=== PATIENT | female | born 2000 | race African-American/Black ===

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

== ENCOUNTER 2019-03-25 08:36 | Emergency (ER) | payer OTHER ==
[~2019-03-25] VITALS: Ht 160 cm; Wt 85.4 kg
[~2019-03-25 08:36] MED LIST changes: +IBUP200T45 PO; +TYLETAB14 PO
[2019-03-25] MEDS ORDERED: CYCLOBENZAPRINE 5MG TABLET PO ONE (09:15)
[2019-03-25] MEDS ORDERED: IBUPROFEN 800 MG TAB PO ONE (09:15)
[2019-03-25 10:37] VITALS: BP 128/71
[2019-03-25] MEDS ORDERED: LIDO5DIS41 TD (10:44)
[2019-03-25] MEDS ORDERED: IBUP80TA PO (10:44)
[2019-03-25] MEDS ORDERED: CYCL5TAB PO (10:44)
[2019-03-25] MEDS ORDERED: LIDOCAINE 5% (LIDODERM) PATCH TD ONE (10:45)
--- NOTE | 2019-03-25 10:49 | REP ---
LUMBOSACRAL SPINE, FIVE VIEWS: Five views of the lumbosacral spine performed. There is no compression fracture or malalignment. There is no spondylolysis or spondylolisthesis. Disc spaces are well preserved. Posterior elements are intact. IMPRESSION: Negative lumbosacral spine series. Electronically Signed by Mark Virgen MD 03/25/2019 05:53 P
[2019-03-25] MEDS ORDERED: **NOTE PATIENT COMMENT** MISC XX SCH (21:00)
== END 2019-03-25 10:51 | disposition home or self-care (01) ==
LOC: M ED 08:36
DX: M62.830 Muscle spasm of back (principal); G89.29 Other chronic pain; M54.5 Low back pain; Z79.899 Other long term (current) drug therapy

== ENCOUNTER 2019-04-08 12:34 | Inpatient (IN) | payer OTHER ==
[~2019-04-08] VITALS: Ht 160 cm; Wt 83.4 kg
[~2019-04-08 12:34] MED LIST changes: +CYCL5TAB PO; +IBUP80TA PO; +LIDO5DIS41 TD
[2019-04-08 13:12] LABS: HEMATOCRIT 39.3 % (36.0-47.0); HEMOGLOBIN 12.3 g/dl (12.0-15.5); MEAN CORPUSCULAR HEMOGLOBIN 24.7 pg (27.0-33.0); MEAN CORPUSCULAR HGB CONC 31.3 g/dl (32.0-36.5); MEAN CORPUSCULAR VOLUME 78.9 fl (80.0-96.0); PLATELET COUNT, AUTOMATED 286 10^3/uL (150-450); RED BLOOD COUNT 4.98 10^6/uL (4.00-5.40)
[2019-04-08 13:40] LABS: AMPHETAMINES LEVEL URINE NEGATIVE (NEGATIVE); BARBITURATES URINE NEGATIVE (NEGATIVE); BENZODIAZEPINES URINE NEGATIVE (NEGATIVE); CANNABINOIDS URINE NEGATIVE (NEGATIVE); COCAINE METABOLITE URINE NEGATIVE (NEGATIVE); METHADONE URINE NEGATIVE (NEGATIVE); OPIATES URINE NEGATIVE (NEGATIVE); PHENCYCLIDINE URINE NEGATIVE (NEGATIVE)
[2019-04-08 13:45] LABS: HCG, SERUM QUALITATIVE NEGATIVE (NEGATIVE)
[2019-04-08 13:51] LABS: ACETAMINOPHEN LEVEL < 2.0 UG/ML (10.0-30.0); ALBUMIN 3.8 GM/DL (3.2-5.2); ALT/SGPT 12 U/L (12-78); BILIRUBIN,DIRECT < 0.1 MG/DL (0.0-0.2); BILIRUBIN,TOTAL 0.3 MG/DL (0.2-1.0); BLOOD UREA NITROGEN 14 MG/DL (7-18); CALCIUM LEVEL 8.9 MG/DL (8.5-10.1); CARBON DIOXIDE LEVEL 27 MEQ/L (21-32); CHLORIDE LEVEL 108 MEQ/L (98-107); ETHYL ALCOHOL (ETHANOL) < 0.003 % (0.000-0.010); GLUCOSE, FASTING 92 MG/DL (70-100); POTASSIUM SERUM 3.7 MEQ/L (3.5-5.1); SALICYLATE LEVEL < 1.7 MG/DL (5.0-30.0); SODIUM LEVEL 141 MEQ/L (136-145); THYROID STIMULATING HORMONE 0.949 uIU/ML (0.463-3.98); TOTAL PROTEIN 7.7 GM/DL (6.4-8.2)
[2019-04-08] MEDS ORDERED: MOM 30ML SUSPENSION UDC PO PRN (17:45)
[2019-04-08] MEDS ORDERED: ACETAMINOPHEN TAB 650MG DOSE (2X325MG) PO PRN (17:45)
[2019-04-08] MEDS ORDERED: MAALOX 30 ML SUSP *UDC PO PRN (17:45)
[2019-04-08] MEDS ORDERED: LIDO5DIS41 TD (20:19)
[2019-04-08] MEDS ORDERED: CYCL5TAB PO (20:19)
[2019-04-08] MEDS ORDERED: ACET-683 PO (20:19)
[2019-04-08 22:30] VITALS: BP 131/78
[2019-04-09 06:09] VITALS: BP 118/56
--- NOTE | 2019-04-09 09:52 | MHHPEPDOC ---
[facility] History & Physical History and Physical DATE OF ADMISSION: Apr 08, 2019 at 17:40 Renetta Davis New Patient Renetta Davis Select Gender MRN: N/A Date of : MM/DD/YYYY Date of Service: 04/09/2019 Chief Complaint "I was only suicidal for a little." History of Present Illness The patient, a 19-year-old woman with a history of mild depression after a miscarriage last September, reports that she had become increasingly stressed, fatigued and had difficulty sleeping after she had found out that her who is currently deployed had been cheating on her. She reports that this made her much more depressed and that in the setting of isolation she had become much more concerned about her safety reporting suicidal thoughts with the thought to use her 's shotgun to kill herself with. She had been brought to [facility] after she presented to [facility] for the suicidal ideation earlier. She had been significantly scared of these thoughts. When the patient was met with she reported that she had felt depressed and r eported suicidal ideation prior to coming in, but none when she had come in. She reports that her mood and affect have been low secondary to the multiple stresses, but that prior she has had no psychiatric history and had been in good emotional health prior. Review Of Systems Depression: As above. Anxiety: The patient denies any excessive worry associated with physical symptoms. They deny any experience of discreet panic in the past. Teresa: The patient denies any episodes of euphoria/dysphoria associated with decreased need for sleep, hedonism, talkatively or impulsivity lasting longer than 5 days. Psychotic: The patient denies any experiences of auditory or visual hallucinations. They deny any episodes of paranoia or delusional thinking in the past Trauma: The patient denies any traumatic events associated with nightmares or intrusive thoughts. Borderline: The patient screens negative for borderline personality at this junction. Past Psychiatric History The patient reports no history of psychiatric admissions, medication trials or current follow up. Allergies Please see below. Family Psychiatric History The patient denies/is unaware any history of mental health history including addictions and suicide. Social History The patient is currently to her first , woman with no children. She has been to her for the last year. She currently subsists on income. She is a high school graduate with no major legal problems other than small tickets for driving without a license. She grew up in a family with the parents with a good relationship with her mother who currently lives in [place] and has a estranged relationship with her father. Reports no history of abuse. Reports doing well in school without any major problems. 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 Substance Abuse History The patient denies any excessive alcohol use, tobacco or illicit drug use, denies history of substance use treatment. Medical History Patient has no significant past medical history. Mental Status Examination General: Well dressed with good hygiene Speech: Spontaneous and fluid Thought processes: Linear and logical MSK: Smooth and coordinated gait, no signs of tremors or involuntary orofacial movements Thought content: Future orientated Abstract reasoning, and computation: Intact Description of associations: Intact Description of abnormal or psychotic thoughts: Denies any suicidal or homicidal ideation. Denies any auditory or visual hallucinations. Does not appear to be responding to internal stimuli. Does not appear to be endorsing any bizarre or paranoid ideation. Judgment: fair Insight: fair Orientation: Alert and orientated 3 Cognition: Grossly normal Recent and remote memory: Intact Attention span and concentration: Intact Fund of knowledge: Adequate Mood: "okay" Affect: Mildly anxious Diagnoses Unspecified depressive disorder. Rule out adjustment versus MDD if patient gets minimizing. Assessment and Plan Unspecified depressive disorder: Start sertraline 25 mg daily. Discussed risks, benefits, and potential side effects with patient, as well as, alternatives and which medications not to mix with. Disposition Patient will need admission likely lasting around 2 midnights in order to stabilize her depression. Plan for safety and have weapons removed from her home from higher chain of command as this poses significant threat to her safety. Problem List 1. Risk for suicide. 2. Depression. 3. Ineffective coping. Initial Treatment Plan 1. Patient was admitted on a 9.39 legal status. 2. Complete history was obtained. 3. With patients permission, family will be contacted and database will be expanded. 4. Patients medication regimen will be reviewed and changed accordingly. 5. Patient will be provided with protected environment. 6. Patient will be treated with individual, group, and milieu therapies. 7. Patient will receive supportive psych-education. 8. Discharge planning will commence immediately. 9. Outpatient follow-up treatment will be strongly recommended. 10. The initial treatment plan will focus initially on: Estimated Length Of Stay 3 days. Time Spent 45 minutes. Vital Signs Vital Signs Date Time Temp Pulse Resp B/P (MAP) Pulse Ox O2 Delivery O2 Flow Rate FiO2 04/09/19 06:09 99.0 77 16 118/56 (76) Room Air 04/08/19 21:52 100 Laboratory Data 24H Labs Laboratory Tests 2 04/08/19 12:59: Nucleated Red Blood Cells % (auto) 0.0, Anion Gap 6L, Calcium Level 8.9, Total Bilirubin 0.3, Direct Bilirubin < 0.1, Aspartate Amino Transf (AST/SGOT) 11, Alanine Aminotransferase (ALT/SGPT) 12, Alkaline Phosphatase 83, Total Protein 7.7, Albumin 3.8, Albumin/Globulin Ratio 0.97L, Thyroid Stimulating Hormone (TSH) 0.949, Human Chorionic Gonadotropin, Qual NEGATIVE, Salicylates Level < 1.7L, Urine Opiates Screen NEGATIVE, Urine Methadone Screen NEGATIVE, Acetaminophen Level < 2.0L, Urine Barbiturates Screen NEGATIVE, Urine Phencyclidine Screen NEGATIVE, Urine Amphetamines Screen NEGATIVE, Urine Benzodiazepines Screen NEGATIVE, Urine Cocaine Metabolite Screen NEGATIVE, Urine Cannabinoids Screen NEGATIVE, Ethyl Alcohol Level < 0.003 CBC/BMP Laboratory Tests 04/08/19 12:59 Medications Scheduled Lidocaine (Lidoderm) 5% Adh..patch, 1 PATCH TD DAILY, (Reported) Apply to area of pain, Remove patch after 12 hours Scheduled PRN Acetaminophen (Acetaminophen) 500 Mg Tablet, 1,000 MG PO Q8H PRN for PAIN / FEVER, (Reported) Cyclobenzaprine HCl (Cyclobenzaprine HCl) 5 Mg Tablet, 5 MG PO Q8H PRN for MUSCLE SPASMS, (Reported) Allergies Coded Allergies: No Known Allergies (Verified Allergy, Unknown, 11/10/18) HUSEYIN SIMEON DO Apr 09, 2019 09:52
[2019-04-09] MEDS ORDERED: CYCLOBENZAPRINE 5MG TABLET PO PRN (10:45)
--- NOTE | 2019-04-09 11:51 | HPE ---
DATE OF ADMISSION: 04/08/2019 CHIEF COMPLAINT: Back pain and depression. HISTORY OF PRESENT ILLNESS: This is a 19-year-old female, past medical history of spontaneous abortions s/p dilation and currettage x 2, chronic low back pain imaged on 03/25/2019 with negative findings, active duty admitted for depression. She otherwise denies any changes in weight, fever, chills, insomnia, hypersomnia. She has had a decrease in appetite. No nausea or vomiting, abdominal pain, dysuria, urgency, frequency, fever or chills, flank pain. Denies chest pain, pressure or tightness, shortness of breath, paroxysmal nocturnal dyspnea (PND) or orthopnea. Denies any rashes, joint pains or muscle aches, rhinorrhea, upper respiratory infection, sore throat, ear pain, headaches or changes vision, diplopia. Patient denies any polyuria or polydipsia. PAST MEDICAL HISTORY: Dilation and curettage, spontaneous times two. PAST SURGICAL HISTORY: Dilation and curettage times two ALLERGIES: NO KNOWN DRUG ALLERGIES. HOME MEDICATIONS: None. HOSPITALIST MEDICATIONS: - trazodone - acetaminophen - Milk of Magnesia - Mylanta - Flexeril as needed 5 mg every 6 hours SOCIAL HISTORY: Denies any cigarette use. Drinks Smirnoff once per month. Active duty . FAMILY HISTORY: Mother and father in their 40s alive and well. No active medical problems. REVIEW OF SYSTEMS: Per history of present illness (HPI). 10-point system otherwise negative. PHYSICAL EXAMINATION: Temperature 99, pulse 77, respiratory rate 16, blood pressure 118/56, 100% on room air. Generally, patient is awake, alert, oriented times three, answering questions appropriately. Patient is maintaining eye contact. No respiratory distress. No cyanosis. No pallor, icterus, jaundice. Moist mucous membranes. No cervical lymphadenopathy or thyromegaly. No tonsillar exudates. Tympanic membranes are clear. Lungs are clear to auscultation. No wheezing, rales or rhonchi. Heart: S1, S2. Sinus rhythm. Abdomen is obese, soft, nontender, nondistended. Positive bowel sounds. Extremities: No cyanosis, clubbing or any pitting edema. Musculoskeletal: Patient does not have any costovertebral angle (CVA) tenderness bilaterally. No point tenderness on vertebral exam from the cervical, thoracic and lumbar spine. LABORATORY DATA: 04/08/2019 CBC, metabolic panel, liver function tests, TSH, hCG have been reviewed. Urine toxicology screen is negative. Ethyl alcohol is negative. IMAGING STUDIES: 03/25/2019 lumbar spine negative lumbar spine series. ASSESSMENT AND PLAN: This is a 19-year-old admitted for depression, history of spontaneous abortions times two with two dilation and curettages complains of chronic back pain. Patient has no dysuria, urgency or frequency, fever or chills, flank pain. Urinalysis (UA) will be checked. X-ray of the lumbar spine is unremarkable. Urine hCG is negative. Deep venous thrombosis (DVT) prophylaxis encourage ambulation. MTDD
[2019-04-09 16:39] VITALS: BP 129/81
[2019-04-09] MEDS: traZODone 50 MG TAB PO PRN (21:10)
[2019-04-10 06:47] VITALS: BP 123/78
[2019-04-10] MEDS: SERTRALINE HCL 25 MG TABLET PO SCH (08:51)
[2019-04-10 16:25] VITALS: BP 110/59
--- NOTE | 2019-04-10 18:31 | MHIPN ---
DATE: 04/10/2019 CHIEF COMPLAINT: Says feels better. SUBJECTIVE: Seen for followup in the presence of staff. She was admitted April 08. Currently the admission summary is not available. She says she feels better since coming in, in that she is somewhat less anxious, possibly less depressed. Several stressors, including those outlined in the emergency room (ER) note, including concerns about her , his fidelity. Says her mother knows that she is here. Has spoken with her. Says they are close. MENTAL STATUS EXAMINATION: Neat, cooperative, though a bit guarded. No agitation. No psychomotor retardation. She is coherent. Affect restricted but reactive. Denies any suicidal thoughts or intents. No homicidal ideas or intents. No evidence of any psychosis. Judgment and insight are compromised. ASSESSMENT: 1. Other specified depressive disorder. 2. Rule out major depressive disorder. PLAN: Continue current care, including the sertraline, and continue encouraging patient's participation in activities in the unit. Further recommendations will be made depending in the clinical picture. VITAL SIGNS: Blood pressure 110/59, pulse 70, temperature 98.4.
[2019-04-10] MEDS: traZODone 50 MG TAB PO PRN (20:54)
[2019-04-11 06:33] VITALS: BP 106/58
[2019-04-11] MEDS: SERTRALINE HCL 25 MG TABLET PO SCH (08:21)
[2019-04-11] MEDS ORDERED: DOCUSATE SODIUM 100 MG CAP PO PRN (11:45)
--- NOTE | 2019-04-11 15:37 | MHIPN ---
DATE: 04/11/2019 VITAL SIGNS: Blood pressure 106/58, pulse 99, temperature 99.1. CHIEF COMPLAINT: Says feels okay. SUBJECTIVE: She is seen for followup in the presence of staff. Says feels okay emotionally, had difficulties going to sleep last night, despite the trazodone. MENTAL STATUS EXAMINATION: Neat, cooperative. We had just woken her up, she was napping. Affect is restricted but reactive, is a bit tired. Denies any thoughts of harming herself or anyone else. No evidence of any psychosis. Cognition is grossly intact. Judgment and insight possibly improved. ASSESSMENT: 1. Other specified depressive disorder. 2. Rule out major depressive disorder. PLAN: Continue current care and participation in the activities on the unit. She sees her treatment team and the psychiatrist tomorrow and is expected to be discharged shortly.
[2019-04-11 16:34] VITALS: BP 115/65
[2019-04-11] MEDS: traZODone 50 MG TAB PO PRN (20:54)
[2019-04-12 06:37] VITALS: BP 121/65
[2019-04-12] MEDS ORDERED: SERT25TA21 PO (08:26)
[2019-04-12] MEDS: SERTRALINE HCL 25 MG TABLET PO SCH (09:39)
--- NOTE | 2019-04-12 09:51 | MHDSPDOC ---
[facility] Discharge Summary Discharge Summary DATE OF ADMISSION: Apr 08, 2019 at 17:40 DATE OF DISCHARGE: Apr 12, 2019 at 09:47 Renetta Yaya Davis Discharge Renetta Davis Select Gender MRN: N/A Date of : MM/DD/YYYY Date of Service: 04/12/2019 Diagnoses Unspecified depressive disorder. Rule out adjustment versus MDD if patient is minimizing. History of Present Illness The patient, a 19-year-old woman with a history of mild depression after a miscarriage last September, reports that she had become increasingly stressed, fatigued and had difficulty sleeping after she had found out that her who is currently deployed had been cheating on her. She reports that this made her much more depressed and that in the setting of isolation she had become much more concerned about her safety reporting suicidal thoughts with the thought to use her 's shotgun to kill herself with. She had been brought to [facility] after she presented to [facility] for the suicidal ideation earlier. She had been significantly scared of these thoughts. When the patient was met with she reported that she had felt depressed and reported suicidal ideation prior to coming in, but none when she had come in. She reports that her mood and affect have been low secondary to the multiple stresses, but that prior she has had no psychiatric history and had been in good emotional health prior. Consultants Involved Hospitalist/PCP screening Treatment and Progress On The Unit The patient was admitted to the unit and subsequently started on sertraline. She had denied suicidal ideation prior to coming to the unit after observation in the ER. After treatment on the inpatient unit, she had improvement, reported positive results from her medications and was able to demonstrate insight into the situation that brought her in. She had been denying suicidal ideation thr ough the majority of her stay and when Friday came, the patient reported that she wished to go. She did not meet involuntary criteria in my opinion as she was not admitting to any suicidal ideation. Her mental status did not demonstrate any signs or symptoms of severe impairment by her depression. She demonstrates good insight, attended to her needs in groups regularly. She demonstrated no homicidal ideation or anger towards others especially those that have wronged her demonstrating good frontal control. She declined further voluntary admission and thus was discharged in [place]. Discharge Assessment 19-year-old woman who presents with likely adjustment disorder after being put into multiple stressful situations. It's unlikely that she has gotten into major depression, however, if she does not participate in treatment and improve, she could later end up with it converting into major depression. She did well on the unit and is discharged in [place]. Mental Status Examination General: Well dressed with good hygiene Speech: Spontaneous and fluid Thought processes: Linear and logical MSK: Smooth and coordinated gait, no signs of tremors or involuntary orofacial movements Thought content: Future orientated Abstract reasoning, and computation: Intact Description of associations: Intact Description of abnormal or psychotic thoughts: Denies any suicidal or homicidal ideation. Denies any auditory or visual hallucinations. Does not appear to be responding to internal stimuli. Does not appear to be endorsing any bizarre or paranoid ideation. Judgment: fair Insight: fair Orientation: Alert and orientated 3 Cognition: Grossly normal Recent and remote memory: Intact Attention span and concentration: Intact Fund of knowledge: Adequate Mood: "okay" Affect: Euthymic with a full range Follow Up The social work team worked during the predischarge meeting in order to evaluate for further issues of lethality address them fully before discharge. They worked on safety planning with the patient's family members in order to ensure that the patient will have a safe and effective discharge. Time Spent The amount of time spent in the coordination of care for this patient was approximately 30 minutes. Vital Signs/I&Os Vital Signs Date Time Temp Pulse Resp B/P (MAP) Pulse Ox O2 Delivery O2 Flow Rate FiO2 04/12/19 06:37 97.6 63 14 121/65 (83) 04/11/19 06:33 Room Air 04/08/19 21:52 100 Medications Scheduled Lidocaine (Lidoderm) 5% Adh..patch, 1 PATCH TD DAILY, (Reported) Apply to area of pain, Remove patch after 12 hours Sertraline HCl (Sertraline HCl) 25 Mg Tablet, 25 MG PO DAILY for mood for 7 Days, #7 Scheduled PRN Acetaminophen (Acetaminophen) 500 Mg Tablet, 1,000 MG PO Q8H PRN for PAIN / FEVER, (Reported) Cyclobenzaprine HCl (Cyclobenzaprine HCl) 5 Mg Tablet, 5 MG PO Q8H PRN for MUSCLE SPASMS, (Reported) Allergies Coded Allergies: No Known Allergies (Verified Allergy, Unknown, 11/10/18) HUSEYIN SIMEON DO Apr 12, 2019 09:51
== END 2019-04-12 09:47 | disposition home or self-care (01) | DRG 881 ==
LOC: M ED 12:34 → M ED INP 17:40 → M PSY 22:12
PROVIDERS: ADMIT Psychiatry & Neurology Addiction Medicine; ATTEND Psychiatry & Neurology Addiction Medicine
DX: F32.9 Major depressive disorder, single episode, unspecified (principal); R45.851 Suicidal ideations; Z79.899 Other long term (current) drug therapy

== ENCOUNTER 2019-08-27 07:55 | Emergency (ER) | payer OTHER ==
[~2019-08-27] VITALS: Ht 160 cm; Wt 85.9 kg
[~2019-08-27 07:55] MED LIST changes: +ACET-683 PO; +SERT25TA21 PO
[2019-08-27] MEDS ORDERED: PREN29TA4 PO (08:02)
[2019-08-27 08:49] LABS: BASO % 0.7 % (0.0-1.0); EOS # 0.1 10^3/uL (0.0-0.5); HEMATOCRIT 38.5 % (36.0-47.0); HEMOGLOBIN 12.1 g/dl (12.0-15.5); LYMPH # 1.8 10^3/uL (1.5-5.0); LYMPH % 29.9 % (24.0-44.0); MEAN CORPUSCULAR HEMOGLOBIN 25.7 pg (27.0-33.0); MEAN CORPUSCULAR HGB CONC 31.4 g/dl (32.0-36.5); MEAN CORPUSCULAR VOLUME 81.9 fl (80.0-96.0); MONO # 0.4 10^3/uL (0.0-0.8); MONO % 7.5 % (0.0-5.0); NEUTROPHILS # 3.6 10^3/uL (1.5-8.5); NEUTROPHILS % 60.6 % (36.0-66.0); PLATELET COUNT, AUTOMATED 299 10^3/uL (150-450); WHITE BLOOD COUNT 5.9 10^3/uL (4.0-10.0)
[2019-08-27 09:36] LABS: BLOOD UREA NITROGEN 11 MG/DL (7-18); CALCIUM LEVEL 8.5 MG/DL (8.5-10.1); CARBON DIOXIDE LEVEL 26 MEQ/L (21-32); CHLORIDE LEVEL 107 MEQ/L (98-107); CREATININE FOR GFR 0.79 MG/DL (0.55-1.30); GLUCOSE, FASTING 84 MG/DL (70-100); HCG, SERUM QUANTITATIVE 7140 MIU/ML; POTASSIUM SERUM 3.8 MEQ/L (3.5-5.1); SODIUM LEVEL 139 MEQ/L (136-145)
--- NOTE | 2019-08-27 10:19 | REP ---
PELVIC ULTRASOUND: Real-time sonographic evaluation of the pelvis is performed. Transabdominal and endovaginal technique is utilized. Gestational sac is seen in the uterus, with a mean sac diameter of 8 mm corresponding to an estimated gestational age of 5 weeks 4 days. A yolk sac is seen within the gestational sac. No pole is seen. Findings are consistent with early intrauterine . There is no subchorionic hemorrhage. Right ovary measures 3.7 x 1.7 x 2.6 cm. Left ovary measures 5.0 x 3.0 x 3.9 cm. Complex corpus luteum of the left ovary measures 3.7 x 2.7 x 2.4 cm. No torsion is seen with duplex Doppler evaluation. Electronically Signed by Mark Virgen MD 08/31/2019 03:20 P
[2019-08-27 10:46] VITALS: BP 131/63
[2019-08-27 11:07] LABS: APPEARANCE, URINE CLOUDY (CLEAR); BACTERIA, URINE AUTO 3+ (NEGATIVE); BILIRUBIN, URINE AUTO NEGATIVE (NEGATIVE); BLOOD, URINE BLOOD NEGATIVE (NEGATIVE); COLOR, URINE AMBER (YELLOW); GLUCOSE, URINE (UA) AUTO NEGATIVE (NEGATIVE); KETONE, URINE AUTO NEGATIVE (NEGATIVE); LEUKOCYTE ESTERASE, URINE AUTO NEGATIVE (NEGATIVE); MUCUS, URINE MODERATE (NEGATIVE); NITRITE, URINE AUTO NEGATIVE (NEGATIVE); PROTEIN, URINE AUTO NEGATIVE (NEGATIVE); RBC, URINE AUTO 3 /HPF (0-3); SPECIFIC GRAVITY URINE AUTO 1.029 (1.002-1.035); SQUAMOUS EPITHELIAL CELL UR AU 15 /HPF (0-6); UROBILINOGEN, URINE AUTO 0.2 mg/dL (0.0-2.0); WBC, URINE AUTO 3 /HPF (0-3)
== END 2019-08-27 11:10 | disposition home or self-care (01) ==
LOC: M ED 07:55
DX: O99.89 Other specified diseases and conditions complicating pregnancy, childbirth and the puerperium (principal); R10.9 Unspecified abdominal pain; Z3A.01 Less than 8 weeks gestation of pregnancy; Z79.899 Other long term (current) drug therapy

== ENCOUNTER 2019-11-01 05:49 | Emergency (ER) | payer OTHER ==
[~2019-11-01] VITALS: Ht 160 cm; Wt 87.3 kg
[2019-11-01] MEDS ORDERED: ACETAMINOPHEN 500 MG TAB PO ONE (07:00)
[2019-11-01] MEDS ORDERED: NS 1,000 ML IV ONE (07:00)
[2019-11-01] MEDS ORDERED: METOCLOPRAMIDE INJ 10MG/2ML VIAL (J2765 PER 1) IV ONE (07:00)
[2019-11-01] MEDS ORDERED: diphenhydrAMINE 50MG/ML VIAL (J1200) IV ONE (07:00)
[2019-11-01 07:26] LABS: BASO % 0.4 % (0.0-1.0); EOS # 0.1 10^3/uL (0.0-0.5); EOS % 1.9 % (0.0-3.0); HEMATOCRIT 36.5 % (36.0-47.0); HEMOGLOBIN 12.5 g/dl (12.0-15.5); LYMPH # 1.6 10^3/uL (1.5-5.0); LYMPH % 22.9 % (24.0-44.0); MEAN CORPUSCULAR HEMOGLOBIN 27.4 pg (27.0-33.0); MEAN CORPUSCULAR HGB CONC 34.2 g/dl (32.0-36.5); MEAN CORPUSCULAR VOLUME 79.9 fl (80.0-96.0); MONO # 0.6 10^3/uL (0.0-0.8); MONO % 8.1 % (0.0-5.0); NEUTROPHILS # 4.6 10^3/uL (1.5-8.5); NEUTROPHILS % 66.3 % (36.0-66.0); PLATELET COUNT, AUTOMATED 213 10^3/uL (150-450); RED BLOOD COUNT 4.57 10^6/uL (4.00-5.40); WHITE BLOOD COUNT 6.9 10^3/uL (4.0-10.0)
[2019-11-01 08:28] VITALS: BP 112/61
== END 2019-11-01 08:36 | disposition home or self-care (01) ==
LOC: M ED 05:49
DX: G44.209 Tension-type headache, unspecified, not intractable (principal); S00.33XA Contusion of nose, initial encounter; W50.1XXA Accidental kick by another person, initial encounter; Y92.018 Other place in single-family (private) house as the place of occurrence of the external cause; Z3A.15 15 weeks gestation of pregnancy
CPT/HCPCS: 84702; 85025; 96361; 96374; 96375; 99284; J1200; J2765

== ENCOUNTER 2019-12-05 16:37 | Emergency (ER) | payer OTHER ==
[~2019-12-05] VITALS: Ht 160 cm; Wt 88.9 kg
[2019-12-05 17:12] LABS: HEMATOCRIT 35.8 % (36.0-47.0); HEMOGLOBIN 12.3 g/dl (12.0-15.5); MEAN CORPUSCULAR HEMOGLOBIN 28.5 pg (27.0-33.0); MEAN CORPUSCULAR HGB CONC 34.4 g/dl (32.0-36.5); MEAN CORPUSCULAR VOLUME 82.9 fl (80.0-96.0); PLATELET COUNT, AUTOMATED 227 10^3/uL (150-450); RED BLOOD COUNT 4.32 10^6/uL (4.00-5.40); WHITE BLOOD COUNT 7.7 10^3/uL (4.0-10.0)
[2019-12-05 17:37] LABS: BLOOD UREA NITROGEN 11 MG/DL (7-18); CALCIUM LEVEL 8.3 MG/DL (8.5-10.1); CARBON DIOXIDE LEVEL 25 MEQ/L (21-32); CHLORIDE LEVEL 106 MEQ/L (98-107); CREATININE FOR GFR 0.59 MG/DL (0.55-1.30); GLUCOSE, FASTING 105 MG/DL (70-100); POTASSIUM SERUM 3.7 MEQ/L (3.5-5.1); SODIUM LEVEL 139 MEQ/L (136-145)
--- NOTE | 2019-12-05 19:47 | REPVR ---
PROCEDURE INFORMATION: Exam: US , Limited Exam date and time: 12/05/2019 7:30 PM Age: 19 years old Clinical indication: complicated by abdominal or pelvic pain; Lower; Second trimester; Gestational age or lmp: 07/19/19; ; Additional info: Cramping/no movement TECHNIQUE: Imaging protocol: Real-time ultrasound of the maternal uterus with image documentation. Exam focused on the clinical indication. COMPARISON: CR Spine. Lumbosacral, complete 03/25/2019 9:20 AM FINDINGS: Gestation: Single intrauterine gestation demonstrated. Gestational age is 19 weeks 6 days based on LMP of 07/19/2019. ZARIA 04/24/2020. Heart rate: heart rate 144 bpm. Placenta: Anterior placenta without evidence of placenta previa. Amniotic fluid: Amniotic fluid volume index is 11.7, normal for gestational age. Other findings: Anatomic survey was not performed requested at this time. IMPRESSION: Unremarkable assessment of amniotic fluid volume . Single living fetus at gestational age 19 weeks 6 days based on LMP. Electronically signed by: James Patel On 12/05/2019 19:47:19 PM
[2019-12-05 20:02] LABS: HEMOGLOBIN A1c 5.3 %
[2019-12-05 20:10] VITALS: BP 113/63
--- NOTE | 2019-12-05 22:49 | IPNPDOC ---
Text Note Date of Service The patient was seen on 12/05/19. NOTE Spoke with provider caring for the patient. No pelvic exam, no vaginal wet prep performed. Recommended a pelvic exam with a wet prep sent prior to discharging the patient. This is standard for evaluation of a patient presenting with cramping as symptoms. DO Tracey VS,Fishbone, I+O VS, Fishbone, I+O Laboratory Tests 12/05/19 17:00 Vital Signs Date Time Temp Pulse Resp B/P (MAP) Pulse Ox O2 Delivery O2 Flow Rate FiO2 12/05/19 20:10 97.8 72 16 113/63 (80) 100 Room Air PENNY CHOW DO Dec 05, 2019 22:49
== END 2019-12-05 20:43 | disposition home or self-care (01) ==
LOC: M ED 16:37
DX: O99.89 Other specified diseases and conditions complicating pregnancy, childbirth and the puerperium (principal); R10.2 Pelvic and perineal pain; Z3A.19 19 weeks gestation of pregnancy

== ENCOUNTER 2020-01-21 18:06 | Emergency (ER) | payer OTHER | END 2020-01-21 21:45 | disposition home or self-care (01) | LOC: M ED 18:06 | DX: Z11.59 Encounter for screening for other viral diseases (principal); O99.89 Other specified diseases and conditions complicating pregnancy, childbirth and the puerperium; Z20.828 Contact with and (suspected) exposure to other viral communicable diseases; Z3A.26 26 weeks gestation of pregnancy | CPT/HCPCS: 99283; U0002 ==

== ENCOUNTER 2020-03-10 08:52 | Emergency (ER) | payer OTHER ==
[~2020-03-10] VITALS: Ht 160 cm; Wt 97.4 kg
--- NOTE | 2020-03-10 09:41 | REPVR ---
PROCEDURE INFORMATION: Exam: XR Chest, 1 View Exam date and time: 03/10/2020 9:22 AM Age: 20 years old Clinical indication: Shortness of breath; Additional info: SOB please shield TECHNIQUE: Imaging protocol: XR of the chest Views: 1 view. COMPARISON: No relevant prior studies available. FINDINGS: Lungs: Unremarkable. No consolidation. Pleural space: Unremarkable. No pleural effusion. No pneumothorax. Heart/Mediastinum: Unremarkable. No cardiomegaly. Bones/joints: Unremarkable. IMPRESSION: No acute abnormalities are identified. Electronically signed by: Lencho Palma On 03/10/2020 09:40:47 AM
[2020-03-10 09:52] LABS: BASO % 0.5 % (0.0-1.0); EOS # 0.1 10^3/uL (0.0-0.5); EOS % 1.3 % (0.0-3.0); HEMATOCRIT 35.7 % (36.0-47.0); LYMPH # 1.2 10^3/uL (1.5-5.0); LYMPH % 19.8 % (24.0-44.0); MEAN CORPUSCULAR HEMOGLOBIN 28.5 pg (27.0-33.0); MEAN CORPUSCULAR HGB CONC 33.6 g/dl (32.0-36.5); MEAN CORPUSCULAR VOLUME 84.8 fl (80.0-96.0); MONO # 0.6 10^3/uL (0.0-0.8); MONO % 10.6 % (0.0-5.0); NEUTROPHILS % 66.6 % (36.0-66.0); PLATELET COUNT, AUTOMATED 197 10^3/uL (150-450); RED BLOOD COUNT 4.21 10^6/uL (4.00-5.40)
[2020-03-10 10:16] LABS: ALBUMIN 2.8 GM/DL (3.2-5.2); ALT/SGPT 11 U/L (12-78); BILIRUBIN,TOTAL 0.2 MG/DL (0.2-1.0); BLOOD UREA NITROGEN 6 MG/DL (7-18); CALCIUM LEVEL 8.9 MG/DL (8.5-10.1); CARBON DIOXIDE LEVEL 25 MEQ/L (21-32); CHLORIDE LEVEL 108 MEQ/L (98-107); CREATININE FOR GFR 0.59 MG/DL (0.55-1.30); GLOMERULAR FILTRATION RATE > 60.0 (>60); GLUCOSE, FASTING 114 MG/DL (70-100); POTASSIUM SERUM 3.7 MEQ/L (3.5-5.1); SODIUM LEVEL 139 MEQ/L (136-145); TOTAL PROTEIN 6.3 GM/DL (6.4-8.2)
--- NOTE | 2020-03-10 10:57 | REPVR ---
PROCEDURE INFORMATION: Exam: US Duplex Lower Extremity Veins, Bilateral Exam date and time: 03/10/2020 10:53 AM Age: 20 years old Clinical indication: Other: SOB TECHNIQUE: Imaging protocol: Real-time duplex ultrasound of the extremities with 2-D chavarria scale, color Doppler flow and spectral waveform analysis with image documentation. Complete exam focused on the bilateral lower extremity veins. COMPARISON: No relevant prior studies available. FINDINGS: Right deep veins: Unremarkable. The common femoral, femoral (duplicated distally), proximal profunda femoral and popliteal veins are patent without thrombus. Normal Doppler waveforms. Normal compressibility and/or augmentation response. Right superficial veins: Saphenofemoral junction is patent without thrombus. Left deep veins: Unremarkable. The common femoral, femoral, proximal profunda femoral and popliteal veins are patent without thrombus. Normal Doppler waveforms. Normal compressibility and/or augmentation response. Left superficial veins: Saphenofemoral junction is patent without thrombus. Soft tissues: Unremarkable. IMPRESSION: No deep venous thrombus demonstrated in either lower extremity. Electronically signed by: Lei Wyatt On 03/10/2020 10:57:07 AM
[2020-03-10 11:12] VITALS: O2SAT 98
[2020-03-10] MEDS ORDERED: NS 1,000 ML IV ONE (11:15)
[2020-03-10 12:51] VITALS: BP 122/59
--- NOTE | 2020-03-11 11:57 | ECGEPIP ---
[facility] - ED Test Date: 2020-03-10 Pat Name: JACOB DYER Department: Room: - Gender: Female Building Custodial Supervisor: : 2000 Requested By: Shikha Hernandez Order Number: [id number] Reading MD: Clarence Armstrong Measurements Intervals [place] Rate: 106 P: 35 [place]: 147 QRS: 38 QRSD: 80 T: 14 QT: 327 QTc: 434 Interpretive Statements SINUS TACHYCARDIA NONSPECIFIC T-WAVE ABNORMALITY NO PRIORS FOR COMPARISON Electronically Signed on 03-11-2020 11:57:07 EDT by Clarence Armstrong
== END 2020-03-10 12:53 | disposition home or self-care (01) ==
LOC: M ED 08:52
DX: O26.813 Pregnancy related exhaustion and fatigue, third trimester (principal); Z3A.33 33 weeks gestation of pregnancy; O99.413 Diseases of the circulatory system complicating pregnancy, third trimester; R00.0 Tachycardia, unspecified

== ENCOUNTER 2020-04-17 14:01 | Outpatient (CLI) | payer OTHER ==
[~2020-04-17] VITALS: Ht 160 cm; Wt 96.6 kg
[2020-04-17 14:22] VITALS: BP 121/70
--- NOTE | 2020-04-17 16:36 | IPNPDOC ---
Obstetrical Progress Note Date of Service Apr 17, 2020 Subjective 20yo G1 at 39wks presents with c/o LOF since Friday. She has not required a pad. Reports active movement. No vaginal bleeding or re ctx. O: vss AF Cat 1 tracing, no ctx. Gen: well appearing abd:soft, gravid, nttp SSE: neg Nitrazine, ferning, robby and valsva A/P: 20yo not ruptured Reassuring status -home with Labor precautions and FKCs -f/u at next OB appt Objective Vital Signs Date Time Temp Pulse Resp B/P (MAP) Pulse Ox O2 Delivery O2 Flow Rate FiO2 04/17/20 14:22 97.9 96 18 121/70 (87) Tocometer Contractions: No Assessment and Plan Age: 20 : 2 Status: Reassuring Group B Streptococcus: Negative YUAN MASON MD. Apr 17, 2020 16:36
== END 2020-04-17 16:30 | disposition home or self-care (01) ==
LOC: M LDO 14:01
PROVIDERS: ATTEND Obstetrics & Gynecology
DX: O47.1 False labor at or after 37 completed weeks of gestation (principal); Z3A.39 39 weeks gestation of pregnancy
CPT/HCPCS: 59025; G0378; G0463

== ENCOUNTER 2020-04-22 09:20 | Outpatient (CLI) | payer OTHER ==
[~2020-04-22] VITALS: Ht 157.5 cm; Wt 97.2 kg
[2020-04-22 09:38] VITALS: BP 115/77
--- NOTE | 2020-04-22 10:55 | IPNPDOC ---
Text Note Date of Service The patient was seen on 04/22/20. REVIEWED CHART NO RISK FACTORS BMI 33.12 MILD CONTRACTIONS ON MONITOR CATEGORY 1 STRIP PELVIC EXAM POSTERIOR 1-2 CM 50% EFFACED SOFT -3 STATION NO BLOOD NO DISCHARGE. REVIEWED WITH PRECAUTIONS. PATIENT BOOKED IOL 05/01/2020 AT 41 WEEKS . PATIENT DISCHARGED UNDELIVERED NOTE 04/22/20 PATIENT SEEN TRIAGE COMPLAINTS CONTRACTIONS FOR 1 HOUR . NO LOSS OF FLUID NO VAGINAL BLEEDING FKC ACTIVE AT 39 WEEKS VS,Fishbone, I+O VS, Fishbone, I+O Vital Signs Date Time Temp Pulse Resp B/P (MAP) Pulse Ox O2 Delivery O2 Flow Rate FiO2 04/22/20 09:38 98.1 107 20 115/77 (90) Nikhil Huynh MD Apr 22, 2020 10:51
== END 2020-04-22 10:52 | disposition home or self-care (01) ==
LOC: M LDO 09:20
PROVIDERS: ATTEND Obstetrics & Gynecology
DX: O26.893 Other specified pregnancy related conditions, third trimester (principal); Z3A.39 39 weeks gestation of pregnancy
CPT/HCPCS: 59025; G0378; G0463

== ENCOUNTER 2020-04-22 19:39 | Inpatient (IN) | payer OTHER ==
[~2020-04-22] VITALS: Ht 160 cm; Wt 96.9 kg
[2020-04-22] VITALS (19 sets, daily range): BP systolic 98–144; BP diastolic 57–83
[2020-04-22] MEDS ORDERED: LACTATED RINGER'S 1000 ML IV ONE (20:30)
--- NOTE | 2020-04-22 21:00 | HPEPDOC ---
Obstetrical History & Physical General Date of Admission Apr 22, 2020 at 20:07 Primary Care Physician: Nikhil Huynh MD History of Present Illness 04/22/2020 2034 PM CONTRACTIONS Q3 MINUTES MODERATE NO VAGINAL BLEEDING NO DISCHARGE GBS NEGATIVE Chief Complaint: Contractions, term, Active Labor Age: 20 : 2 Term: 0 Abortions: 1 Care Care: Good Care Dating Final EDC: Apr 24, 2020 Final EDC by: LMP LMP: Jul 19, 2019 EGA at Admission: 39 Past Medical History Past Obstetrical History : Past Obstetrical History: Primgravida RN REHABILITATION History: No pertinent history Past Medical History Surgical History: Denies/None Family History Significant Family History: No pertinent family hx Social History Marital Status: Psychosocial History: No pertinent psych hx * Smoker: non-smoker Alcohol: Denies Drugs: denies Abuse Violence Screening Have you been hit/kicked/slapp: No Have you been sexually assault: No Imunizations Tdap status: current Influenza Status: current Allergies Coded Allergies: No Known Allergies (Verified Allergy, Unknown, 11/10/18) Medications Scheduled Prenat 115/Iron Fum/Folic/Dss ( 19 Tablet) 1 Each Tablet, 1 TAB PO DAILY Physical Examination Physical Examination GENERAL: Alert and oriented times three. BREAST: . ABDOMEN: Gravid and non-tender to touch. FETUS: Is vertex VTX by sterile vaginal examination SVE fetus is vertex VTX by Lonny. HEART RATE: Regular rate and rhythm. LUNGS: Clear to auscultation CTA NO RHALS NO RONCHI EXTREMITIES: No edema. No clonus. Vital Signs/I&O Vital Signs Date Time Temp Pulse Resp B/P (MAP) Pulse Ox O2 Delivery O2 Flow Rate FiO2 04/22/20 19:53 97.6 91 18 128/83 (98) Laboratory Data 24H LABS Laboratory Tests 2 04/22/20 20:10: Serology Scanned Report Hepatitis B Testing Pertinent Laboratoy Data Blood Type: A- HIV: Negative Hepatitis B: Negative Rapid Plasma Reagin: Nonreactive Rubella: Immune Varicella: Immune Chlamydia/Gonorrhea: Negative Group B Streptococcus: Negative Anatomy Ultrasound Placenta Location: Anterior Normal Anatomy: Yes Steroid Therapy Steroid Therapy: No Vaginal Examination Dilation: 4 cm Effacement: 100% Station: -3 Cervical Consistency: Soft Cervical Position: Anterior Presentation: Cephalic presentation Assessment Variability: Moderate Accelerations: Positive Decelerations: None Tocometer Contractions: Yes Frequency: regular, every 1-5 min. Duration: less than 60 seconds Strength: palpated as moderate Assessment/Plan Assessment 19 -year-old G 2 39.2 WEEKS Presents to Labor and Delivery ACTIVE LABOR Plan Admit and orient. Negative Stripper and consent. Diet: CLEAR Group B Streptococcus GBS negative Labs and intravenous IV per unit protocol. Counseled on Pitocin and AROM Lactated Ringers LR Bolus 1000 ML PRE EPIDURAL then at 125 mL/hr. Anticipate [normal spontaneous delivery C-S as appropriate. Labor and Delivery Counseling REVIEWED CONSENT FOR VAGINAL DELIVERY WHICH IS DELIVERY THROUGH VAGINA. YOU MAY REQUIRE AUGMENTATION WITH PITOCIN YOU MAY REQUIRE EPISIOTOMY TO ALLOW BABY TO DELIVER VAGINALLY WHEN PUSHING BECOMES INEFFECTIVE OR IF DELIVERY NEEDS TO BE EXPEDITED FOR REASONS. CS MAY BE REQUIRED ON URGENT BASIS DUE TO ENVIRONMENT OR MATERNAL REASONS WHEN DELIVERY NEEDS TO BE EXPEDITED. RISKS TO INTERVENTION IS VAGINAL LACERATIONS REPAIR OF EPISIOTOMY CERVICAL REPAIR BOWEL OR BLADDER INJURY RISK OF PP HEMORRHAGE REQUIRE BLOOD TRANSFUSION RISK HYSTERECTOMY RISK ADMISSION NICU, RISK TACHYSYSTOLE RISK OF SCRATCHES , HEMATOMAS , INTRACRANIAL BLEED. PRESENTLY CATEGORY 1 STRIP SAFE TO PROCEED . Nikhil Huynh MD Apr 22, 2020 20:43
[2020-04-22 21:15] LABS: HEMATOCRIT 37.4 % (36.0-47.0); HEMOGLOBIN 12.1 g/dl (12.0-15.5); MEAN CORPUSCULAR HEMOGLOBIN 27.1 pg (27.0-33.0); MEAN CORPUSCULAR HGB CONC 32.4 g/dl (32.0-36.5); MEAN CORPUSCULAR VOLUME 83.9 fl (80.0-96.0); PLATELET COUNT, AUTOMATED 185 10^3/uL (150-450); RED BLOOD COUNT 4.46 10^6/uL (4.00-5.40); WHITE BLOOD COUNT 8.1 10^3/uL (4.0-10.0)
[2020-04-22] MEDS ORDERED: FENTANYL 2MCG/ML ROPIVACAINE 0.2% IN 0.9% NACL 100ML IVBAG As Ordered ONE (21:54)
[2020-04-22] MEDS ORDERED: ONDANSETRON 4MG/2ML VIAL IV PRN (22:22)
[2020-04-22] MEDS ORDERED: EPIDURAL/PCA KEYS XX PRN (22:22)
[2020-04-22] MEDS ORDERED: ePHEDrine SULFATE 25 MG/5 ML(5MG/ML) SYRINGE IV PRN (22:22)
[2020-04-22] MEDS ORDERED: NALOXONE INJ 0.4MG/1ML VIAL (J2310 PER 1MG) IV PRN (22:22)
[2020-04-22] MEDS ORDERED: REFRIGERATOR IV KEYS XX PRN (22:22)
[2020-04-22] MEDS ORDERED: EPIDURAL COMMENT XX SCH (22:22)
[2020-04-22] MEDS ORDERED: diphenhydrAMINE 50MG/ML VIAL (J1200) IV PRN (22:22)
[2020-04-22] MEDS ORDERED: LACTATED RINGER'S 1000 ML IV PRN (22:22)
[2020-04-22] MEDS: LR 1,000 ML IV SCH (22:30)
[2020-04-23] VITALS (29 sets, daily range): BP systolic 105–142; BP diastolic 55–89
[2020-04-23] MEDS: FENTANYL/ROPIVACAINE/NACL BAG 100 ML EPIDURAL SCH ×2 (00:12→07:14)
--- NOTE | 2020-04-23 01:11 | IPNPDOC ---
Text Note Date of Service The patient was seen on 04/23/20. NOTE 04/23/20 [address] AROM CLEAR FLUID 9 CM OT -3 100% EFFACED CATEGORY 1 STRIP SAFE TO PROCEED. VS,Fishbone, I+O VS, Fishbone, I+O Laboratory Tests 04/22/20 21:05 Vital Signs Date Time Temp Pulse Resp B/P (MAP) Pulse Ox O2 Delivery O2 Flow Rate FiO2 04/22/20 23:49 110 130/61 (84) 04/22/20 19:53 97.6 18 Nikhil Huynh MD Apr 23, 2020 01:10
[2020-04-23] MEDS ORDERED: OXYTOCIN 30 UNITS IN 0.9% NaCl 500ML IV BAG (J2590) As Ordered ONE (01:52)
[2020-04-23] MEDS: LR 1,000 ML IV SCH (03:15)
[2020-04-23 08:28] LABS: CORD GAS ABE A -6.1; CORD GAS HCO3 A 22.1 MEQ/L; CORD GAS PCO2 A 54.5 mmHg; CORD GAS PH A 7.226 UNITS; CORD GAS SBC A 17.9 MEQ/L; CORD GAS TCO2 A 23.8 MEQ/L
[2020-04-23 08:31] LABS: CORD GAS ABE V -2.7; CORD GAS HCO3 V 20.7 MEQ/L; CORD GAS O2 SAT V 77.2 %; CORD GAS PCO2 V 32.9 mmHg; CORD GAS PH V 7.417 UNITS; CORD GAS PO2 V 31.2 mmHg; CORD GAS SBC V 21.7 MEQ/L; CORD GAS TCO2 V 21.7 MEQ/L
[2020-04-23] MEDS ORDERED: LR 1,000 ML IV SCH (08:54)
[2020-04-23] MEDS ORDERED: OXYTOCIN DRIP 30 UNITS in IV 1 EA IV ONE (09:00)
[2020-04-23] MEDS ORDERED: DIBUCAINE 1% OINTMENT 30GM TOP PRN (09:00)
[2020-04-23] MEDS ORDERED: MOM 30ML SUSPENSION UDC PO PRN (09:00)
[2020-04-23] MEDS ORDERED: OXYTOCIN INJ 10 UNITS/ML VIAL (J2590) IV ONE (09:00)
[2020-04-23] MEDS ORDERED: DOCUSATE SODIUM 100 MG CAP PO PRN (09:00)
[2020-04-23] MEDS: PRENATAL VITAMINS CHEWABLE TABLET PO SCH (09:00)
[2020-04-23] MEDS ORDERED: METHYLERGONOVINE MALEATE 0.2 MG TAB PO PRN (09:00)
[2020-04-23] MEDS ORDERED: ACETAMINOPHEN TAB 650MG DOSE (2X325MG) PO PRN (09:00)
[2020-04-23] MEDS ORDERED: MEASLES,MUMPS,RUBELLA VACCINE INJ (MMR-II) (90707) SC SCH (09:00)
[2020-04-23] MEDS ORDERED: RHOGAM 300 MCG (1500 IU) INJ (J2790) IM SCH (09:00)
[2020-04-23] MEDS ORDERED: ACETAMINOPHEN 500 MG TAB PO PRN (09:00)
[2020-04-23] MEDS ORDERED: IBUPROFEN 600MG TAB PO PRN (09:00)
[2020-04-23] MEDS ORDERED: ANUSOL HC CREAM 30GM TOP PRN (09:00)
[2020-04-23] MEDS ORDERED: OXYTOCIN DRIP 30 UNITS in IV 1 EA IV SCH (09:00)
--- NOTE | 2020-04-23 09:42 | DNPDOC ---
[facility] Delivery Note Delivery Note DATE OF DELIVERY: 04/23/2020 PREDELIVERY DIAGNOSIS: active labor at 40 weeks' gestation and labor. POST DELIVERY DIAGNOSIS: Delivered. PROCEDURE: vacuum assisted to stabilize caput then removed and over mid line episiotomy DOOR CAPTAIN: DR.E.S.COHEN LAI. ANESTHESIA: Y.DATE OF DELIVERY: 04/23/2020 PREDELIVERY DIAGNOSIS: 40 weeks, 0 days gestation. POSTDELIVERY DIAGNOSIS: spontaneous PROCEDURE: Spontaneous vaginal delivery PROVIDER: marina Huynh Md [employer] COORDINATOR: ANESTHESIA: Epidural. ESTIMATED BLOOD LOSS: 100 mL. FINDINGS: Male] weighing 8 pounds 2 ounces or 3690grams, scores 8 and 9 DELIVERY SUMMARY: After a short second stage, with 2 pulls vacuum to stabilize caput very asynclitic then removed vacuum pressure was 50 mm mg the patient spontaneously delivered a 8 pound 2 ounce male infant, weighing 3690 grams, under epidural anesthesia] . The delivered right occiput anterior, and there was one nuchal time one, loose, which was reduced. The shoulders delivered with ease, followed by the corpus and terminal meconium. The cried spontaneously and was handed to the mother. scores were 8 and 9 The cord was doubly clamped and cut by the father of the baby. The placenta was delivered spontaneously and appeared to be intact . The patient received 5 units Pitocin immediately after delivery of the placenta. Patient had A MIDLINE EPISIOTOMY . REPAIRED 2-0 VICRYL Sponge, needle, and instrument counts were correct. ESTIMATED BLOOD LOSS: 100 ML FINDINGS: 8 pound 2 ounce , Score 8/9 , nuchal cord times 1 LOOSE DELIVERY SUMMARY: Patient is a 20year-old 2 now para 1 who was admitted to labor and delivery ACTIVE LABOR Nikhil Huynh MD Apr 23, 2020 09:40
[2020-04-23] MEDS ORDERED: SLF 3 ML SYR IV PRN (12:15)
[2020-04-23] MEDS: IBUPROFEN 800 MG TAB PO PRN (12:34)
[2020-04-23] MEDS ORDERED: SLF 3 ML SYR IV SCH (14:00)
[2020-04-24 06:10] VITALS: BP 125/78
--- NOTE | 2020-04-24 07:17 | IPNPDOC ---
Progress Note Date of Service: Apr 24, 2020 Day#: 1 Progress Note SUBJECT: 20yo s/p VAVD doing well day # 1. She has been ambu lating, voiding spontaneously without issue and tolerating regular diet. Breast feeding without issue. Reports lochia is decreasing. Reports pain controlled. OBJECTIVE: VITAL SIGNS: Within normal limits, afebrile. Alert and oriented times three. RESP: no exaggerated respiratory effort appreciated, no cough CARDS: well-perfused Abdomen: Fundus firm at U-2. Soft, NTTP. : Small lochia, small edema, laceration well-approximated ASSESSMENT: 20yo s/p VAVD doing well day # 1. Normotensive, afebrile, hemodynamically stable with no evidence of infection. PLAN: 1. Discharge to home tomorrow 2. Tylenol and Motrin for pain PRN. 3. Encourage breast feeding and ambulation. 4. Encourage regular diet and PO hydration as tolerated 5. Monitor lochia and vitals q4h and PRN VS, I&O, 24H, [facility] Vital Signs/I&O Vital Signs Date Time Temp Pulse Resp B/P (MAP) Pulse Ox O2 Delivery O2 Flow Rate FiO2 04/24/20 06:10 98.0 76 20 125/78 (94) 97 Room Air I&O- Last 24 Hours up to 6 AM 04/24/20 06:00 Output Total 3000 ml Balance -3000 ml Laboratory Data 24H LABS Laboratory Tests 2 04/23/20 08:18: Cord Arterial Blood pH 7.226, Cord Arterial Blood PCO2 54.5, Cord Arterial Blood PO2 14.0, Cord Arterial Blood HCO3 22.1, Cord Arterial Blood Total CO2 23.8, Cord Arterial Blood Base Excess -6.1, Cord Arterial Base Excess (Standard 17.9, Cord Arterial Bld Oxygen Saturation 19.0, Cord Venous Blood pH 7.417, Cord Venous Blood PCO2 32.9, Cord Venous Blood PO2 31.2, Cord Venous Blood HCO3 20.7, Cord Venous Blood Total CO2 21.7, Cord Venous Base Excess (Actual) -2.7, Cord Venous Base Excess (Standard) 21.7, Cord Venous Blood Oxygen Saturation 77.2 KATLYN PECK DO Apr 24, 2020 07:17
[2020-04-24 07:45] LABS: HEMATOCRIT 35.3 % (36.0-47.0); HEMOGLOBIN 11.3 g/dl (12.0-15.5); MEAN CORPUSCULAR HEMOGLOBIN 26.8 pg (27.0-33.0); MEAN CORPUSCULAR VOLUME 83.8 fl (80.0-96.0); PLATELET COUNT, AUTOMATED 159 10^3/uL (150-450); RED BLOOD COUNT 4.21 10^6/uL (4.00-5.40); WHITE BLOOD COUNT 7.4 10^3/uL (4.0-10.0)
[2020-04-24] MEDS: PRENATAL VITAMINS CHEWABLE TABLET PO SCH (08:12)
[2020-04-24] MEDS: IBUPROFEN 800 MG TAB PO PRN (08:12)
[2020-04-24 17:42] VITALS: BP 115/61
--- NOTE | 2020-04-25 04:16 | IPNPDOC ---
Progress Note Date of Service: Apr 25, 2020 Day#: 2 Progress Note SUBJECT: 20yo s/p VAVD doing well day # 2. She has been ambulating, voiding spontaneously without issue and tolerating regular diet. She has stopped and is currently formula feeding. She desires to attempt pumping at home but declines pump while inpatient. Reports lochia is decreasing. Reports pain controlled. OBJECTIVE: VITAL SIGNS: Within normal limits, afebrile. Alert and oriented times three. RESP: no exaggerated respiratory effort appreciated, no cough CARDS: well-perfused Abdomen: Fundus firm at U-2. Soft, NTTP. : deferred per patient request ASSESSMENT: 20yo s/p VAVD doing well day # 2. Normotensive, afebrile, hemodynamically stable with no evidence of infection. PLAN: 1. Discharge to home today. 2. Tylenol and Motrin for pain. 3. Encourage ambulation as tolerated. 4. Encourage regular diet and PO hydration as tolerated 5. Routine PP visit in 6 weeks in clinic. 6. Discussed return precautions at length. VS, I&O, 24H, Fishbone Vital Signs/I&O Vital Signs Date Time Temp Pulse Resp B/P (MAP) Pulse Ox O2 Delivery O2 Flow Rate FiO2 04/24/20 17:42 98.3 85 16 115/61 (79) 04/24/20 06:10 97 Room Air Laboratory Data 24H LABS Laboratory Tests 2 04/24/20 06:31: Nucleated Red Blood Cells % (auto) 0.0 CBC/BMP Laboratory Tests 04/24/20 06:31 KATLYN PECK DO Apr 25, 2020 04:16
[2020-04-25 05:33] VITALS: BP 134/73
[2020-04-25] MEDS: IBUPROFEN 800 MG TAB PO PRN (07:35)
[2020-04-25] MEDS: PRENATAL VITAMINS CHEWABLE TABLET PO SCH (07:36)
== END 2020-04-25 12:10 | disposition home or self-care (01) | DRG 807 ==
LOC: M LDO 19:39 → M LDI 20:07 → M OBS 04-23 12:20
PROVIDERS: ADMIT Obstetrics & Gynecology; ATTEND Obstetrics & Gynecology
PROC: 10D07Z6 Extraction of Products of Conception, Vacuum, Via Natural or Artificial Opening (ICD-10-PCS; principal; 2020-04-23)
PROC: 0W8NXZZ Division of Female Perineum, External Approach (ICD-10-PCS; 2020-04-23)
PROC: 10907ZC Drainage of Amniotic Fluid, Therapeutic from Products of Conception, Via Natural or Artificial Opening (ICD-10-PCS; 2020-04-23)
DX: O77.0 Labor and delivery complicated by meconium in amniotic fluid (principal); Z37.0 Single live birth; Z3A.40 40 weeks gestation of pregnancy

== ENCOUNTER → 2020-12-16 | Outpatient (CLI) | payer OTHER | LOC: M LABSMTC 11:29 | PROVIDERS: ATTEND Anesthesiology | DX: Z20.828 Contact with and (suspected) exposure to other viral communicable diseases (principal); Z11.59 Encounter for screening for other viral diseases ==

== ENCOUNTER 2020-12-21 06:06 | Day surgery (SDC) | payer OTHER ==
[~2020-12-21] VITALS: Ht 160 cm; Wt 95.6 kg
[~2020-12-21 06:06] MED LIST changes: +LR 1,000 ML IV ONE
[2020-12-21 06:53] LABS: HEMATOCRIT 39.6 % (36.0-47.0); MEAN CORPUSCULAR HEMOGLOBIN 26.9 pg (27.0-33.0); MEAN CORPUSCULAR HGB CONC 32.8 g/dl (32.0-36.5); MEAN CORPUSCULAR VOLUME 81.8 fl (80.0-96.0); PLATELET COUNT, AUTOMATED 240 10^3/uL (150-450); RED BLOOD COUNT 4.84 10^6/uL (4.00-5.40); WHITE BLOOD COUNT 5.4 10^3/uL (4.0-10.0)
[2020-12-21] MEDS ORDERED: BUPIVACAINE LIPOSOME/PF 1.3% 20ML VIAL (13.3MG/ML)(EXPAREL)(C9290 PER1MG) As Ordered ONE (07:10)
[2020-12-21] MEDS ORDERED: ceFAZolin 1GM VIAL (J0690 PER 500MG) As Ordered ONE (07:11)
[2020-12-21] MEDS ORDERED: dexameTHASONE 4 MG/ML 1ML VIAL (J1100 PER 1MG) As Ordered ONE (07:24)
[2020-12-21] MEDS ORDERED: ROCURONIUM BROMIDE 50 MG/5 ML VIAL As Ordered ONE ×2 (07:24→08:57)
[2020-12-21] MEDS ORDERED: propofoL 200 MG/20 ML VIAL As Ordered ONE (07:24)
[2020-12-21] MEDS ORDERED: LIDOCAINE 2% 100MG/5ML SDV (FOR ANES.) As Ordered ONE (07:24)
[2020-12-21] MEDS ORDERED: fentaNYL 250 MCG/5 ML INJECTION (J3010) As Ordered ONE (07:25)
[2020-12-21] MEDS ORDERED: MIDAZOLAM INJ 2MG/2ML VIAL (J2250 PER 1MG) As Ordered ONE (07:25)
[2020-12-21 07:26] LABS: BLOOD UREA NITROGEN 14 MG/DL (7-18); CALCIUM LEVEL 8.2 MG/DL (8.5-10.1); CARBON DIOXIDE LEVEL 27 MEQ/L (21-32); CHLORIDE LEVEL 108 MEQ/L (98-107); GLOMERULAR FILTRATION RATE > 60.0 (>60); GLUCOSE, FASTING 97 MG/DL (70-100); POTASSIUM SERUM 3.6 MEQ/L (3.5-5.1); SODIUM LEVEL 140 MEQ/L (136-145)
[2020-12-21] MEDS ORDERED: ceFAZolin SOD 1 GM in D5W MINI-BAG PLUS 50 ML IV ONE (07:30)
[2020-12-21] MEDS ORDERED: HEPARIN SOD (PORCINE) 5000UNITS/ML 1ML VIAL/SYRINGE As Ordered ONE (07:34)
[2020-12-21] MEDS ORDERED: LACRILUBE (AKWA TEARS) OPHTH OINT 3.5 GM As Ordered ONE (07:59)
[2020-12-21] MEDS ORDERED: ESMOLOL INJ 100MG/10ML VIAL As Ordered ONE (08:18)
[2020-12-21] MEDS ORDERED: ACETAMINOPHEN 1000MG 100ML IV BTL (OFIRMEV) (J0131 PER 10MG) As Ordered ONE (08:53)
[2020-12-21] MEDS ORDERED: SUGAMMADEX SODIUM 500 MG/5 ML VIAL (BRIDION) As Ordered ONE (08:53)
[2020-12-21] MEDS ORDERED: HYDROmorphone HCL 2 MG/ML 1ML VIAL (J1170) As Ordered ONE (08:53)
[2020-12-21] MEDS ORDERED: ONDANSETRON 4MG/2ML VIAL As Ordered ONE (08:57)
[2020-12-21] MEDS ORDERED: SEVOFLURANE INHAL SOLN 250 ML BTL As Ordered ONE (09:16)
[2020-12-21] MEDS ORDERED: ONDANSETRON 4MG/2ML VIAL IV PRN ×3 (09:30→12:30)
[2020-12-21] MEDS ORDERED: LR 1,000 ML IV SCH ×2 (09:30→12:30)
[2020-12-21] MEDS ORDERED: fentaNYL 100 MCG/2 ML INJECTION (J3010) IV PRN ×2 (09:30→12:30)
[2020-12-21] MEDS ORDERED: HYDROMORPHONE HCL 0.5 MG/ 0.5 ML SYRINGE (J1170 PER 1) IV PRN ×2 (09:30→12:30)
[2020-12-21] MEDS ORDERED: oxyCODONE 5MG TAB PO PRN ×2 (09:30→12:30)
--- NOTE | 2020-12-21 12:08 | POST-OPPD ---
Postoperative Procedure Note Date Of Procedure: Dec 21, 2020 PREPROCEDURE DIAGNOSES: Bilateral breast hypertrophy. POSTPROCEDURE DIAGNOSES: same. PROCEDURE PERFORMED: Bilateral breast reduction. SURGEON: Dr Green ANESTHESIA: General. ESTIMATED BLOOD LOSS: Approximately 150 mL. COMPLICATIONS: none. FINDINGS: Large breasts SPECIMENS REMOVED: Right breast 768 gm, Left breast 760 gm CONDITION: FERNY Nicole DO Dec 21, 2020 12:08
--- NOTE | 2020-12-21 12:11 | ROOPDOC ---
[facility] Report Of Operation Report of Operation DATE OF PROCEDURE: 12/21/20 PREPROCEDURE DIAGNOSES: Bilateral breast hypertrophy. POSTPROCEDURE DIAGNOSES: same. PROCEDURE PERFORMED: Bilateral breast reduction. SURGEON: Dr Brenner ANESTHESIA: General. ESTIMATED BLOOD LOSS: Approximately 150 mL. COMPLICATIONS: none. FINDINGS: Large breasts SPECIMENS REMOVED: Right breast 768 gm, Left breast 760 gm CONDITION: stable DESCRIPTION OF PROCEDURE: This is a 20-year-old female who upper back and neck pain worsened by large breasts. Patient is an active duty soldier. She is scheduled for bilateral breast reduction. Risks, benefits, and alternatives were discussed with the patient in detail, and she is ready to proceed. The day of surgery, she was marked in the upright position and informed consent was obtained. She measured 34 cm from sternal notch to nipple on both sides, IMF at 22 cm bilaterally. She was brought into the operating room and placed in the supine position. Preoperative antibiotics and 5000 units heparin subcutaneous were given. Sequential pneumatic stocking were placed on the lower calves. General anesthesia was induced. She was prepped and draped in the usual sterile fashion. We started our procedure on the right side. Her nipple areolar complex was outlined 45 mm in diameter, and the patient was marked according superior medial pedicle. We started our incision by scoring the nipple areolar complex area, and then dissection was continued until the inferior lateral portion of the breast was resected. Hemostasis was obtained using electrocautery. The pedicle was de- epithelialized using Paredes scissors, good perfusion to the nipple at all times. Wound was irrigated with Ancef solution. We used Exparel 6 cc for local anesthesia to infiltrate in the Pectoralis muscle as well as the breast tissue. [place] Tiseal coagulation agent applied. Than, pedicle was turned superior to its new location at 22 cm from sternal notch. The mound was re-created using conforming 0 Vicryl sutures. Pillars were closed with interrupted 3-0 Monocryl sutures. The vertical limb was 8.5 cm. Excess tissue inferiorly was measured and resected, creating the horizontal scar. Nipple area complex was brought into view through the new opening and sutured in place with 3-0 and 4-0 Monocryl sutures and a 5-0 plain. A 10 mm Raghav-Wilks drain was placed through the lateral portion of the horizontal incision. Then we turned our attention to the left side. Her nipple areolar complex was outlined 45 mm in diameter, and the patient was marked according superior medial pedicle. We started our incision by scoring the nipple areolar complex area, and then dissection was continued until the inferior lateral portion of the breast was resected. Hemostasis was obtained using electrocautery. The pedicle was de- epithelialized using Paredes scissors, good perfusion to the nipple at all times. Wound was irrigated with Ancef solution. We used Exparel 6 cc for local anesthesia to infiltrate in the Pectoralis muscle as well as the breast tissue. [place] Tiseal coagulation agent applied. Than, pedicle was turned superior to its new location at 22 cm from sternal notch. The mound was re-created using conforming 0 Vicryl sutures. Pillars were closed with interrupted 3-0 Monocryl sutures. The vertical limb was 8.5 cm. Excess tissue inferiorly was measured and resected, creating the horizontal scar. Nipple area complex was brought into view through the new opening and sutured in place with 3-0 and 4-0 Monocryl sutures and a 5-0 plain. A 10 mm Raghav-Wilks drain was placed through the lateral portion of the horizontal incision. Remaining Exparel injected in the horizontal incision. Total Exparel use 20 cc. Resected tissue sent to pathology in two specimens right and left breast tissue. Right breast 768 grams, left breast 760 grams. Dressings were applied to vertical and horizontal incision: Prinio strips and Dermabond. Nipples areolar complex: Xeroform and a bulky dressing with a surgical bra. Patient was extubated in the operating room without difficulty and was transferred to the recovery room in stable condition. FERNY BRENNER DO Dec 21, 2020 12:11
[2020-12-21] MEDS ORDERED: ACETAMINOPHEN TAB 650MG DOSE (2X325MG) PO PRN (12:15)
[2020-12-21 13:11] VITALS: BP 132/80
[2020-12-21] MEDS: LR 1,000 ML IV SCH (13:30)
[2020-12-21 13:42] VITALS: BP 132/78
[2020-12-21 14:49] VITALS: BP 124/69
[2020-12-21 15:55] VITALS: BP 125/68
[2020-12-21] MEDS: ceFAZolin SOD 1 GM in D5W MINI-BAG PLUS 50 ML IV SCH (15:55)
[2020-12-21] MEDS: PERCOCET 5MG/325MG TAB PO PRN (15:56)
[2020-12-21 16:45] VITALS: BP 132/69
[2020-12-21] MEDS: KETOROLAC TROMETHAMINE 10 MG TAB PO PRN (18:22)
[2020-12-21 19:41] VITALS: BP 111/68
[2020-12-22] MEDS: ceFAZolin SOD 1 GM in D5W MINI-BAG PLUS 50 ML IV SCH ×2 (00:32→07:53)
[2020-12-22 01:20] VITALS: BP 123/56
[2020-12-22] MEDS: LR 1,000 ML IV SCH (02:45)
[2020-12-22] MEDS: KETOROLAC TROMETHAMINE 10 MG TAB PO PRN (04:58)
[2020-12-22 06:10] VITALS: BP 127/56
[2020-12-22] MEDS: PERCOCET 5MG/325MG TAB PO PRN (07:53)
--- NOTE | 2020-12-22 08:33 | IPNPDOC ---
Subjective General Date Seen: Dec 22, 2020 Subject Chief Complaint/History The patient is a 20-year-old female admitted with a reason for visit of Bilateral Breast Hypertrophy. Patient status post bilateral breast reduction postop day 1. She is doing well today. Pain controlled with Toradol and Percocet at night. She is tolerating regular diet, ambulating well. Current Medications Current Medications Current Medications Medications (Trade) Dose Ordered Sig/Alfonzo Route PRN Reason Start Time Stop Time Status Last Admin Dose Admin Acetaminophen (Tylenol Tab) 650 mg Q6H PRN PO MILD PAIN (PS 1-4) 12/21/20 12:15 Cefazolin Sodium 1 gm/Dextrose 50 ml @ 100 mls/hr Q8H IV 12/21/20 16:00 12/22/20 07:53 Fentanyl Citrate (Sublimaze) 25 mcg Q5MP PRN IV PAIN LEVEL 5-10 12/21/20 09:30 12/21/20 11:30 DC Fentanyl Citrate (Sublimaze) 25 mcg Q5MP PRN IV PAIN LEVEL 5-10 12/21/20 12:30 12/21/20 14:30 DC Hydromorphone HCl (Dilaudid) 0.2 mg Q5MP PRN IV PAIN LEVEL 4-7 12/21/20 09:30 12/21/20 11:30 DC Hydromorphone HCl (Dilaudid) 0.2 mg Q5MP PRN IV PAIN LEVEL 4-7 12/21/20 12:30 12/21/20 14:30 DC Ketorolac Tromethamine (ToRADol) 10 mg Q6HP PRN PO MODERATE PAIN (PS 5-7) 12/21/20 12:15 12/26/20 12:14 12/22/20 04:58 Lactated Ringer's 1,000 ml @ 75 mls/hr [id number] IV 12/21/20 12:15 12/22/20 02:45 Lactated Ringer's 1,000 ml @ 100 mls/hr Q10H IV 12/21/20 09:30 12/21/20 11:30 DC Lactated Ringer's 1,000 ml @ 100 mls/hr Q10H IV 12/21/20 12:30 12/21/20 14:30 DC Ondansetron HCl (ZOFRAN INJection) 4 mg Q4H PRN IV NAUSEA OR VOMITING 12/21/20 12:15 12/21/20 20:27 Ondansetron HCl (ZOFRAN INJection) 4 mg Q4HP PRN IV NAUSEA OR VOMITING 12/21/20 09:30 12/21/20 11:30 DC Ondansetron HCl (ZOFRAN INJection) 4 mg Q4HP PRN IV NAUSEA OR VOMITING 12/21/20 12:30 12/21/20 14:30 DC Oxycodone HCl (Roxicodone, Oxyir) 5 mg ASDIRECTED PRN PO PAIN LEVEL 1-4 12/21/20 09:30 12/21/20 11:30 DC Oxycodone HCl (Roxicodone, Oxyir) 5 mg ASDIRECTED PRN PO PAIN LEVEL 1-4 12/21/20 12:30 12/21/20 14:30 DC Oxycodone/ Acetaminophen (Percocet 5mg/ 325mg Tablet) 2 tab Q4HP PRN PO PAIN LEVEL 8-10 12/21/20 12:15 12/22/20 07:53 Allergies Coded Allergies: No Known Allergies (Verified Allergy, Unknown, 12/19/20) Objective Physical Examination Examination GENERAL APPEARANCE:Patient seen, laying in bed, awake, alert, and oriented. Comfortable, in no acute distress. SKIN: Warm and moist. BREAST: Right and left soft, non-tender incisions intact. ANDREA drains: 27/27 cc/24 hr. NAC: Viable, warm, symmetrical, mild post-op ecchymosis, no expanding hematoma. LUNGS: Clear to auscultation bilaterally. No wheezing appreciated. HEART: No chest wall abnormalities. Regular rate and rhythm with no murmurs appreciated. ABDOMEN: Abdomen is soft, non-tender, non-distended. EXTREMITIES: No edema identified. No calf tenderness. Vital Signs Vital Signs Date Time Temp Pulse Resp B/P (MAP) Pulse Ox O2 Delivery O2 Flow Rate FiO2 12/22/20 07:53 16 12/22/20 06:10 97.7 70 127/56 (79) 97 Room Air I&Os I&O- Last 24 Hours up to 6 AM 12/22/20 06:00 Intake Total 2750 ml Output Total 572 ml Balance 2178 ml Impression Status post bilateral breast reduction. Stable for discharge. Instructions given. Dressings changed today. Follow-up plastic surgery after discharge. Plan / VTE VTE Prophylaxis Ordered?: Yes FERNY BRENNER DO Dec 22, 2020 08:33
[2020-12-22] MEDS ORDERED: PERCOCET PO (09:02)
[2020-12-22] MEDS ORDERED: CEPH500C PO (14:33)
== END 2020-12-22 12:55 | disposition home or self-care (01) ==
LOC: M SDC 06:06 → M MS5PR 13:05 → M SDC 12-22 12:55
PROVIDERS: ATTEND Plastic Surgery Surgery of the Hand
DX: N62 Hypertrophy of breast (principal); N64.81 Ptosis of breast
CPT/HCPCS: 19318; 36415; 80048; 81025; 85027; 88305; 96365; 96366; 96375; C9290; J0131; J0690; J1100; J1170; J1644; J2250; J2405; J3010